=== PATIENT | male | born 1980 | race Caucasian/White ===

== ENCOUNTER 2018-04-25 10:26 | Emergency (ER) | payer BC ==
[~2018-04-25] VITALS: Ht 172.7 cm; Wt 98.0 kg
[2018-04-25 10:39] VITALS: BP 127/92
== END 2018-04-25 12:59 | disposition home or self-care (01) ==
LOC: ER 10:32
DX: S96.811A Strain of other specified muscles and tendons at ankle and foot level, right foot, initial encounter (principal); Z88.0 Allergy status to penicillin; Z90.89 Acquired absence of other organs; X50.1XXA Overexertion from prolonged static or awkward postures, initial encounter; W18.39XA Other fall on same level, initial encounter; Y93.01 Activity, walking, marching and hiking; Y92.89 Other specified places as the place of occurrence of the external cause; Y99.8 Other external cause status
CPT/HCPCS: 73630-TC; A4606; Z7610